=== PATIENT | male | born 1965 | race Caucasian/White ===

== ENCOUNTER 2016-12-17 11:25 | Emergency (ER) | payer SELFPAY ==
[2016-12-17 12:13] VITALS: BP 146/97
--- NOTE | 2016-12-17 13:12 | RAD ---
HISTORY: Trauma, low back pain COMPARISONS: None VIEWS: 2 , frontal and lateral views of the lumbosacral spine FINDINGS: ALIGNMENT: There is a levoscoliotic curvature of the spine VERTEBRAL BODIES: There is multilevel anterolateral marginal osteophyte formation. There is partial lumbarization of the S1 vertebral body. JOINTS: There is diffuse facet hypertrophic change INTERVERTEBRAL DISCS: There is diffuse loss of intervertebral disc height. SOFT TISSUE: Unremarkable. OTHER: The pelvis is unremarkable. The lung bases are clear. IMPRESSION: SCOLIOSIS. DEGENERATIVE DISC DISEASE AND OSTEOARTHRITIS
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
== END 2016-12-17 13:57 | disposition home or self-care (01) ==
LOC: UCCORT 11:25
DX: S39.012A Strain of muscle, fascia and tendon of lower back, initial encounter (principal); V49.40XA Driver injured in collision with unspecified motor vehicles in traffic accident, initial encounter; Y93.89 Activity, other specified; Y92.410 Unspecified street and highway as the place of occurrence of the external cause; Z88.6 Allergy status to analgesic agent; Z87.891 Personal history of nicotine dependence
CPT/HCPCS: 72100; 81003; 99212; G0463

== ENCOUNTER 2018-05-03 08:25 | Day surgery (SDC) | payer BC ==
--- NOTE | 2018-04-21 17:48 | HP ---
CC: Dr. Diaz at [facility] * ADMISSION HISTORY AND PHYSICAL: DATE OF ADMISSION: 05/03/18 ATTENDING SURGEON: Dr. Anival Perez.* (DICTATED BY EDUARD PIÑA) CHIEF COMPLAINT: Umbilical hernia. HISTORY OF PRESENT ILLNESS: This is a 52-year-old, soon to be 53-year-old, male who presents for preoperative history and physical. He first noted the presence of a bulge at the umbilicus about 6 months ago, which gradually became more apparent. He has had some sensitivity related to the bulge, but no significant symptoms in terms of pain or any related GI symptoms. He was seen by his primary care office (Dr. Diza) and referred for surgical evaluation. He was seen in the office by Dr. Perez on 03/30/18. That note is not immediately available. An umbilical hernia was confirmed and recommendation made for repair. The patient understands the indications for surgery, the risks, benefits, and alternatives. He would like to proceed as scheduled with open repair of umbilical hernia with mesh. He did undergo prior bilateral inguinal hernia repairs, the left side was done open, the right side may have been done laparoscopically, though he is unsure. PAST MEDICAL HISTORY: 1. Scoliosis. 2. Mild obesity. PAST SURGICAL HISTORY: Previous surgeries include bilateral inguinal hernia repairs as noted above and nasal septoplasty. No surgical or anesthesia problems reported. CURRENT MEDICATIONS: None. ALLERGIES: Drug allergies, none (acetaminophen has caused a feeling of a lump in the throat on at least 2 occasions). FAMILY HISTORY: Negative for anesthesia problems, bleeding, or clotting disorders. SOCIAL HISTORY: The patient is . He works doing patient transport, but does not have to do any lifting or strenuous activities as part of his job. He is a former smoker who quit 27 years ago. He drinks on average 12 beers per week. He denies any other recreational drug use. REVIEW OF SYSTEMS: General: No recent constitutional symptoms or weight changes. Integument: He has noted bilateral palmar rash in the past year or so , for which he has been seen by a systems administrator, though he is considering consultation with a second dermatology office. Eyes: No recent changes reported. Ears, nose, throat: No problems reported. Cardiovascular: No chest pain, palpitations, history of hypertension, or heart murmur. Respiratory: No history of asthma, chronic cough, or shortness of breath. GI: No problems reported. Colonoscopy done at age 50 with a couple of benign polyps removed and recommended followup at 5 years. No interval symptoms. : No problems reported. Endocrine: No diabetes or thyroid dysfunction. Remainder of review of systems is negative. PHYSICAL EXAMINATION GENERAL: Well-nourished, mildly obese male, in no acute distress. VITAL SIGNS: Height 70 inches, weight 200 pounds, blood pressure 132/80, pulse 80, respirations 18. SKIN: Warm and dry. He does have a scaling bilateral palmar rash with some cracking and fissuring. He has a somewhat similar appearing rash on the glans of the penis. No evidence of active infection. No other suspicious rashes or skin lesions. HEENT: Pupils equal and round, reactive. EOMs intact. Conjunctivae pink. Oropharynx: He has a lower partial denture. Remaining teeth in good repair. No intraoral lesions. NECK: No lymphadenopathy, thyromegaly, or masses. LUNGS: Clear to auscultation. No rales or wheezes. HEART: Regular rate and rhythm. No murmur noted. ABDOMEN: There is an obvious bulge at the umbilicus when he is in the sitting position. This is easily reducible. When he is supine, there is no significant tenderness. The actual fascial defect is approximately 1 fingertip in diameter. Remainder of the abdomen is soft, nontender and without palpable masses or organomegaly. There is a left groin incision from prior herniorrhaphy. This is not clearly apparent in the right groin suggesting possible laparoscopic approach. No palpable recurrent inguinal hernias. GENITALIA: Otherwise, normal (see above for skin). RECTAL: Not done. BACK: He does have some mild scoliosis and slight left paraspinous tenderness ( from recent lifting injury). EXTREMITIES: No edema. NEUROLOGICAL: Grossly intact. IMPRESSION: Umbilical hernia. PLAN: Open repair of umbilical hernia with mesh. EDUARD PIÑA [id number]/[facility] #: [id number] [place]
[~2018-05-03 08:25] MED LIST: Buffered Lidocaine 0.9% SYRIN* 5 ML/SYR SYRINGE INTRADERM ONE
[2018-05-03] MEDS ORDERED: ceFAZolin 2 GM PREMIX (*) 2 GM/50 ML BAG IVPB ONE (08:33)
[2018-05-03] MEDS ORDERED: Succinylcholine* 20 MG/ML 10 ML VIAL ONE (09:36)
[2018-05-03] MEDS ORDERED: Propofol* 10 MG/ML 20 ML BTL IV PUSH ONE (09:36)
[2018-05-03] MEDS ORDERED: Lidocaine 2% PF * 5 ML VIAL ONE (09:36)
[2018-05-03] MEDS ORDERED: Midazolam* 1 MG/ML 2 ML VIAL (2 MG) ONE ×3 (09:40→10:33)
[2018-05-03] MEDS ORDERED: Bupivacaine 0.5% PF 10 ML VIAL INJ ONE (09:55)
[2018-05-03] MEDS ORDERED: Lidocaine 1% MPF wEPI 200,000* 30 ML SDV ONE (09:55)
[2018-05-03] MEDS ORDERED: fentaNYL* 50 MCG/ML 2 ML VIAL (100 MCG VIAL) IV PRN (10:11)
[2018-05-03] MEDS ORDERED: Naloxone* 0.4 MG/ML 1 ML VIAL IV PRN (10:11)
[2018-05-03] MEDS ORDERED: Ondansetron INJ* 2 MG/ML VIAL IV PRN (10:11)
[2018-05-03] MEDS ORDERED: Dexmedetomidine* 200 MCG/2 ML 2 ML VIAL ONE (10:12)
[2018-05-03] MEDS ORDERED: KETAMINE HCL* 50 MG/ML 10 ML VIAL ONE (10:21)
--- NOTE | 2018-05-03 10:40 | OP ---
Operative Report - Blank - Operative Report Date of Operation: 05/03/18 Note: Brief Operative Note Preop Dx: Umbilical Hernia Postop Dx: Same Procedure: open repair umbilical hernia with mesh Anesthesia: local MAC Surgeon: Ana Credit Portfolio Advisor: EDUARD Silverio Fluids: 750 ml RL EBL: none Specimen: hernia sac Drains: none Findings: dictated
[2018-05-03] MEDS ORDERED: Ketorolac INJ* 30 MG/ML 1 ML VIAL ONE (10:41)
[2018-05-03] MEDS ORDERED: oxyCODONE TAB* 5 MG TAB PO PRN (10:41)
[2018-05-03 12:12] VITALS: BP 116/84
--- NOTE | 2018-05-04 22:20 | OP ---
CC: Jase Diaz MD; [facility] * DATE OF OPERATION: 05/03/18 - SDS DATE OF : 65 SURGEON: Anival Perez MD DIE POLISHER: EDUARD Fernández ANESTHESIA: Local MAC. PRE-OP DIAGNOSIS: Umbilical hernia. POST-OP DIAGNOSIS: Umbilical hernia. OPERATIVE PROCEDURE: Open umbilical hernia repair with mesh. ESTIMATED BLOOD LOSS: Minimal. FLUIDS: Minimal crystalloid fluid given. SPECIMEN: None. DESCRIPTION OF PROCEDURE: The patient was identified in the preoperative area, he was marked, consent was signed. Case discussed with him. He was brought to the operating room, placed on the operating table in supine position. Preoperative antibiotics were given. Sequential devices were placed in bilateral lower extremities. Gentle sedation was given, and the patient's abdomen was clipped of hair, prepped and draped in a standard surgical fashion, and a time-out was performed. An infraumbilical incision was made after injection of lidocaine. This incision was deepened down to the anterior fascia, inferior to the umbilicus, sharp dissection was carried out taking away the umbilical skin from the hernia sac. We cleared off the fascia laterally and also superiorly. Next, the hernia sac was entered and examination of this showed there was no attachments. We then ligated the hernia sac and passed it off, I do not believe it was sent for specimen. The edges of the defect were cleared off and it measured approximately 2 cm. Next, a 6.4 cm mesh was introduced. This was a Ventralex mesh that was placed intraperitoneal. The tails of the mesh were brought out through the defect and this was sutured inferiorly and superiorly with 0 Vicryl suture. The tails were cut and then the corners of the hernia defect were also reapproximated with the 0 Vicryl suture. The wound was then irrigated. Hemostasis was achieved. The umbilical skin was tacked down with 2-0 Vicryl suture and the skin incision was reapproximated with 3-0 Vicryl sutures followed by 4-0 Monocryl subcuticular sutures. Steri-Strips and sterile dressings were applied. The patient tolerated the procedure well, was transferred to PACU in stable condition. [id number]/[facility] #: [id number] [facility]ITAL[facility]aron
== END 2018-05-03 12:14 | disposition home or self-care (01) ==
LOC: OR 08:25
PROVIDERS: ATTEND Surgery
DX: K42.9 Umbilical hernia without obstruction or gangrene (principal); Z87.891 Personal history of nicotine dependence; E66.9 Obesity, unspecified; M54.30 Sciatica, unspecified side; M41.9 Scoliosis, unspecified
CPT/HCPCS: 88302; C1781; J0330; J0690; J1885; J2001; J2250; J2704

== ENCOUNTER 2019-06-29 11:29 | Emergency (ER) | payer BC, OTHER ==
[2019-06-29] MEDS ORDERED: Ibuprofen TAB* 800 MG PO ONE (12:11)
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
[2019-06-29 13:45] VITALS: BP 135/90
== END 2019-06-29 13:45 | disposition home or self-care (01) ==
LOC: ED 11:29
DX: M54.2 Cervicalgia (principal); V49.40XA Driver injured in collision with unspecified motor vehicles in traffic accident, initial encounter; Y92.410 Unspecified street and highway as the place of occurrence of the external cause; I10 Essential (primary) hypertension; Z87.891 Personal history of nicotine dependence; Z88.6 Allergy status to analgesic agent
CPT/HCPCS: 72125; 99281; A9270-GY